=== PATIENT | female | born 1975 | race Hispanic/Latino ===

== ENCOUNTER 2021-09-10 08:42 | Emergency (ER) | payer BC, MEDICAID, OTHER ==
[~2021-09-10] VITALS: Ht 167.6 cm; Wt 86.2 kg
[2021-09-10] MEDS ORDERED: CLINDAMYCIN IVPB 600MG/50ML 50 ML IV SCH (09:30)
[2021-09-10] MEDS ORDERED: NAPROXEN 500 MG TABLET PO ONE (09:30)
[2021-09-10] MEDS ORDERED: TETANUS/DIPHTHERIA TOXOID [ADULT] 0.5 ML VIAL IM ONE (09:30)
[2021-09-10] MEDS ORDERED: CLIN-141 PO (11:52)
[2021-09-10] MEDS ORDERED: NAPR-1196 PO (11:52)
[2021-09-10 12:15] VITALS: BP 126/74
== END 2021-09-10 12:22 | disposition home or self-care (01) ==
LOC: EDH 08:42
DX: S61.451A Open bite of right hand, initial encounter (principal); Z79.1 Long term (current) use of non-steroidal anti-inflammatories (NSAID); W54.0XXA Bitten by dog, initial encounter; Y93.89 Activity, other specified; Y92.89 Other specified places as the place of occurrence of the external cause; Y99.8 Other external cause status
CPT/HCPCS: 73130; 90471; 90714; 96365; 99284; J3490